=== PATIENT | male | born 1980 | race Caucasian/White ===

== ENCOUNTER 2018-09-08 08:44 | Day surgery (SDC) | payer OTHER | END 2018-09-08 14:20 | disposition home or self-care (01) | LOC: CIR.AMB 08:44 | DX: M77.12 Lateral epicondylitis, left elbow (principal) ==

== ENCOUNTER 2022-05-04 10:05 | Emergency (ER) | payer OTHER ==
[~2022-05-04] VITALS: Ht 170.2 cm; Wt 65.8 kg
[2022-05-04] MEDS ORDERED: KETO10TA2 PO (14:49)
== END 2022-05-04 14:56 | disposition home or self-care (01) ==
LOC: ER 10:05
DX: M25.562 Pain in left knee (principal)